=== PATIENT | female | born 1995 | race Caucasian/White ===

== ENCOUNTER → 2017-03-09 | Outpatient (REF) | payer BC ==
[2016-02-05 12:33] VITALS: BMI 22.1
[~2017-03-09] MED LIST: AMOX-362 PO; CHOL200074 PO; FLUO-202 PO; HYDR-4309 PO; LOR5/325 PO; LORA-630 PO; MIRT-1 PO; MULT-1379 PO; NORG1TAB76 PO; OMEG500C7 PO; VENL75CA58 PO
== END ==
LOC: ZZSENDIN 12:00
PROVIDERS: ATTEND Physician Assistant
DX: L85.9 Epidermal thickening, unspecified (principal)
CPT/HCPCS: 88305